=== PATIENT | female | born 1945 | race American Indian/Alaskan Native ===

== ENCOUNTER 2019-07-28 11:42 | Day surgery (SDC) | payer MEDICARE, OTHER ==
[2019-07-28] MEDS ORDERED: SODIUM CHLORIDE IRRI 500 ML 500 ML IR ONE (11:49)
[2019-07-28] MEDS ORDERED: ceFAZolin/Water 2 GM/20 ML 2 GM/20 ML SYRINGE IV ONE ×2 (11:50→12:59)
[2019-07-28] MEDS ORDERED: BUPIVACAINE/PF (0.5%) 5 MG/1 ML 30 ML VIAL INFILTRATI ONE (11:50)
[2019-07-28] MEDS ORDERED: LIDOCAINE (1%) 10 MG/1 ML VIAL 20 ML MDV ONE (11:50)
[2019-07-28 12:17] LABS: Basophils % (Auto) 0.8 % (0.0-1.8); Eosinophils # (Auto) 0.2 K/mm3 (0.0-0.4); Eosinophils % (Auto) 3.1 % (0.0-4.3); Hematocrit 35.5 % (30.3-42.9); Lymphocytes # (Auto) 1.7 K/mm3 (1.2-5.4); Lymphocytes % (Auto) 31.4 % (13.4-35.0); Mean Corpuscular HGB Conc 34 % (30-34); Mean Corpuscular Volume 84 fl (79-97); Monocytes # (Auto) 0.4 K/mm3 (0.0-0.8); Monocytes % (Auto) 7.4 % (0.0-7.3); Platelet Count 192 K/mm3 (140-440); Red Blood Count 4.25 M/mm3 (3.65-5.03); Red Cell Distribution Width 14.1 % (13.2-15.2)
[2019-07-28 12:28] LABS: INR 1.15 (0.87-1.13)
[2019-07-28 12:29] LABS: Partial Thromboplastin Time 30.5 Sec. (24.2-36.6)
[2019-07-28] MEDS ORDERED: SODIUM CHLORIDE 0.45% 1000 ML 1,000 ML IV ONE (12:30)
[2019-07-28 12:31] LABS: Calcium 8.7 mg/dL (8.4-10.2)
--- NOTE | 2019-07-28 12:40 | History and Physical Report ---
History of Present Illness Date of examination: 07/28/19 Date of admission: 07/28/2019 Chief complaint: no current complaints History of present illness: The pt is a 74-year-old female with a past medical history of DCM EF 15-20%, chronic systolic heart failure, chronic atrial fibrillation, single chamber ICD, hypertension, hyperlipidemia, and a history of diverticulitis who presents today for scheduled AICD replacement. She has no current complaints. Past History Past Medical History: other (as per HPI) Medications and Allergies Allergies Allergy/AdvReac Type Severity Reaction Status Date / Time No Known Allergies Allergy Verified 07/28/19 12:02 Home Medications Medication Instructions Recorded Confirmed Last Taken Type Allopurinol [Zyloprim] 100 mg PO DAILY 07/27/19 07/27/19 07/27/19 History 100 mg Aspirin [Aspirin BABY CHEW TAB] 81 mg PO DAILY 07/27/19 07/27/19 07/27/19 History 81 mg Calcitriol [Rocaltrol] 0.25 mg PO DAILY 07/27/19 07/27/19 07/27/19 History 0.25mg Folic Acid 1 mg PO DAILY 07/27/19 07/27/19 07/27/19 History 1 mg Metoprolol Succinate [[place] 1.5 tab PO DAILY 07/27/19 07/27/19 07/27/19 History Sprinkle] 1.5tab Pravastatin [Pravachol] 80 mg PO HS 07/27/19 07/27/19 07/27/19 History 80 mg Sacubitril/Valsartan [Entresto 1 tab PO BID 07/27/19 07/27/19 07/27/19 History 49-51 mg] 1 tab Spironolactone [Aldactone] 25 mg PO DAILY 07/27/19 07/27/19 07/27/19 History 25 mg Torsemide [Demadex] 20 mg PO Q48H 07/27/19 07/27/19 07/27/19 History 20 mg Warfarin Sodium [Coumadin] 4 mg PO DAILY 07/27/19 07/27/19 07/22/19 History 4 mg Active Meds: Active Medications Sodium Chloride 1,000 ml/ (Vancomycin HCl 1,000 mg) 0 ml IR INTRAOP ONE Stop: 07/28/19 13:10 Sodium Chloride (Nacl 0.45% 1000 Ml) 1,000 mls @ 50 mls/hr IV DIRECT MANSOOR Last Admin: 07/28/19 12:35 Dose: 50 mls/hr Documented by: Cefazolin Sodium (Ancef/Sterile Water 2 Gm/20 Ml) 2 gm in 20 mls @ 80 mls/hr IV PREOP NR; Protocol Stop: 07/28/19 23:00 Review of Systems All systems: negative (no complaints) Physical Examination Vital Signs Temp Pulse Resp BP Pulse Ox 97.9 F 68 18 116/65 100 07/28/19 12:31 07/28/19 12:31 07/28/19 12:31 07/28/19 12:31 07/28/19 12:31 General appearance: no acute distress HEENT: Positive: PERRL, Normocephaly, Mucus Membranes Moist Neck: Positive: neck supple, trachea midline Cardiac: Positive: irregularly irregular, S1/S2 Lungs: Positive: Decreased Breath Sounds Neuro: Positive: Grossly Intact Abdomen: Negative: Tender Skin: Negative: Rash Musculoskeletal: No Pain Extremities: Absent: edema Results 07/28/19 12:03 07/28/19 12:13 Coagulation 07/28/19 Range/Units 12:03 PT 14.6 (12.2-14.9) Sec. INR 1.15 H (0.87-1.13) APTT 30.5 (24.2-36.6) Sec. CBC 07/28/19 Range/Units 12:03 WBC 5.4 (4.5-11.0) K/mm3 RBC 4.25 (3.65-5.03) M/mm3 Hgb 12.0 (10.1-14.3) gm/dl Hct 35.5 (30.3-42.9) % Plt Count 192 (140-440) K/mm3 Lymph # 1.7 (1.2-5.4) K/mm3 [place] # 0.4 (0.0-0.8) K/mm3 Eos # 0.2 (0.0-0.4) K/mm3 Baso # 0.0 (0.0-0.1) K/mm3 Comprehensive Metabolic Panel 07/28/19 Range/Units 12:13 Sodium 141 (137-145) mmol/L Potassium 4.3 (3.6-5.0) mmol/L Chloride 103.4 (98-107) mmol/L Carbon Dioxide 23 (22-30) mmol/L BUN 25 H (7-17) mg/dL Creatinine 1.3 H (0.7-1.2) mg/dL Glucose 110 H (65-100) mg/dL Calcium 8.7 (8.4-10.2) mg/dL Assessment and Plan Proceed with AICD replacement as scheduled. The patient has been seen in conjunction with Dr. Oates who agrees with the assessment and plan of care. - Patient Problems (1) Dilated cardiomyopathy Current Visit: Yes Status: Chronic (2) Chronic HFrEF (heart failure with reduced ejection fraction) Current Visit: Yes Status: Chronic (3) Chronic atrial fibrillation Current Visit: Yes Status: Chronic (4) Automatic implantable cardioverter-defibrillator in situ Current Visit: Yes Status: Chronic (5) HTN (hypertension) Current Visit: Yes Status: Chronic (6) Hyperlipidemia Current Visit: Yes Status: Acute
[2019-07-28] MEDS ORDERED: SODIUM CHLORIDE 0.45% 1000 ML 1,000 ML IV SCH (13:00)
[2019-07-28] MEDS ORDERED: ceFAZolin/Water 2 GM/20 ML 2 GM/20 ML SYRINGE IV NR (13:00)
[2019-07-28] MEDS: fentaNYL 100 MCG/2 ML INJ ONE ×2 (13:01→13:07)
[2019-07-28] MEDS: MIDAZOLAM 2 MG/2 ML INJ ONE ×2 (13:01→13:07)
[2019-07-28] MEDS ORDERED: diphenhydrAMINE 50 MG/ML VIAL ONE (13:08)
[2019-07-28] MEDS ORDERED: SODIUM CHLORIDE IRRI 1000 ML 1,000 ML, .VANCOMYCIN VIAL 1,000 MG IR ONE (13:09)
[2019-07-28] MEDS ORDERED: .VANCOMYCIN VIAL 1,000 MG in SODIUM CHLORIDE IRRI 1000 ML 1,000 ML IRRIGATION ONE (13:47)
[2019-07-28 14:52] VITALS: BP 113/59
== END 2019-07-28 15:15 | disposition home or self-care (01) ==
LOC: CATH 11:42
PROVIDERS: ATTEND Internal Medicine Cardiovascular Disease
DX: I11.0 Hypertensive heart disease with heart failure (principal); I50.22 Chronic systolic (congestive) heart failure; I42.0 Dilated cardiomyopathy; I48.20 Chronic atrial fibrillation, unspecified; E78.5 Hyperlipidemia, unspecified; Z95.810 Presence of automatic (implantable) cardiac defibrillator; Z79.899 Other long term (current) drug therapy; Z79.82 Long term (current) use of aspirin; Z79.01 Long term (current) use of anticoagulants; Z87.891 Personal history of nicotine dependence; Z98.49 Cataract extraction status, unspecified eye; Z98.890 Other specified postprocedural states; Z80.8 Family history of malignant neoplasm of other organs or systems; Z82.49 Family history of ischemic heart disease and other diseases of the circulatory system
CPT/HCPCS: 33262; 36415; 80048; 85025; 85610; 85730; 93005; 93010; 99156; 99157; C1722; J0690; J1200; J2250; J3010; J3370; J7030